=== PATIENT | female | born 1960 | race Caucasian/White ===

== ENCOUNTER → 2017-12-07 | Outpatient (CLI) | payer OTHER, MEDICAID | LOC: FIMAGING 14:52 | PROVIDERS: ATTEND Orthopaedic Surgery Foot and Ankle Surgery | DX: M19.072 Primary osteoarthritis, left ankle and foot (principal); M25.472 Effusion, left ankle; M24.072 Loose body in left ankle; Z96.652 Presence of left artificial knee joint ==

== ENCOUNTER → 2018-06-20 | Outpatient (CLI) | payer OTHER, MEDICAID ==
--- NOTE | 2018-06-21 10:11 | CPEKG ---
Heart Rate: 70 RR Interval: 857 P-R Interval: 200 QRSD Interval: 66 QT Interval: 376 QTC Interval: 406 P [place]: 42 QRS [place]: 51 T Wave [place]: 36 EKG Severity - ABNORMAL ECG - EKG Impression: SINUS RHYTHM EKG Impression: ST ELEVATION SUGGESTS PERICARDITIS, BUT REQUIRES CLINICAL CORRELATION Electronically Signed By: Valencia Nelson 21-Jun-2018 10:19:22
== END ==
LOC: FPAT 15:20
PROVIDERS: ATTEND Orthopaedic Surgery Foot and Ankle Surgery
DX: Z01.810 Encounter for preprocedural cardiovascular examination (principal)